=== PATIENT | female | born 1985 | race Caucasian/White ===

== ENCOUNTER 2022-04-16 12:57 | Emergency (ER) | payer OTHER ==
[~2022-04-16] VITALS: Ht 160 cm; Wt 69.4 kg
[2022-04-16] MEDS ORDERED: KETOROLAC TROMETHAMINE 30 MG INJ IM ONE (13:30)
[2022-04-16] MEDS ORDERED: predniSONE 20 MG TABLET PO ONE (13:30)
[2022-04-16] MEDS ORDERED: KETOROLAC TROMETHAMINE 30 MG INJ ONE (13:30)
[2022-04-16] MEDS ORDERED: predniSONE 20 MG TABLET ONE (13:30)
--- NOTE | 2022-04-16 13:38 | NUR ---
Pt signed the consent stating she is okay to have CT scan w/o screening. explained the risks. Pt acknowledged. Pt is sure she is not .
[2022-04-16] MEDS ORDERED: METH4TAB3 PO (14:09)
[2022-04-16] MEDS ORDERED: IBUP-1957 PO (14:09)
[2022-04-16] MEDS ORDERED: HYDR-4209 PO (14:09)
[2022-04-16] MEDS ORDERED: CYCL10TA9 PO (14:09)
--- NOTE | 2022-04-16 14:15 | NUR ---
Patient discharged to home in stable condition. Written and verbal after care instructions given. Patient verbalizes understanding of instructions. Stressed follow up or return to ER for worsening s/s.
[2022-04-16 14:37] VITALS: BP 129/78
== END 2022-04-16 14:15 | disposition home or self-care (01) ==
LOC: ER 12:57
DX: S33.141A Dislocation of L4/L5 lumbar vertebra, initial encounter (principal); S33.39XA Dislocation of other parts of lumbar spine and pelvis, initial encounter; X50.0XXA Overexertion from strenuous movement or load, initial encounter; Y93.89 Activity, other specified; Y92.512 Supermarket, store or market as the place of occurrence of the external cause; Y99.8 Other external cause status
CPT/HCPCS: 99285; 72131; 96372; J7512; J1885; A4663

== ENCOUNTER 2022-06-29 14:46 | Emergency (ER) | payer OTHER ==
[~2022-06-29] VITALS: Ht 157.5 cm; Wt 70.3 kg
[~2022-06-29 14:46] MED LIST: CYCL10TA9 PO; HYDR-4209 PO; IBUP-1957 PO; METH4TAB3 PO
[2022-06-29] MEDS ORDERED: FUROSEMIDE 40 MG/4 ML VIAL ONE (14:59)
[2022-06-29] MEDS ORDERED: ASPIRIN 325 MG TABLET ONE (15:00)
[2022-06-29] MEDS ORDERED: NITROGLYCERIN OINT 1 GM PACKET TP ONE (15:01)
--- NOTE | 2022-06-29 15:11 | NUR ---
PT IS IN ROOM #2A. DR SOLIS EVALUATED THE PT.
[2022-06-29] MEDS ORDERED: PRED50TA PO (15:16)
--- NOTE | 2022-06-29 15:38 | NUR ---
PT WAS D/C'd TO HOME. D/C INSTRUCTIONS GIVEN TO THE PT.
[2022-06-29 15:39] VITALS: BP 126/71
== END 2022-06-29 15:40 | disposition home or self-care (01) ==
LOC: ER 14:46
DX: L50.9 Urticaria, unspecified (principal); Z88.6 Allergy status to analgesic agent; Z88.8 Allergy status to other drugs, medicaments and biological substances; Z79.899 Other long term (current) drug therapy
CPT/HCPCS: A4663; J1940

== ENCOUNTER 2022-10-08 09:57 | Emergency (ER) | payer OTHER ==
[~2022-10-08] VITALS: Ht 157.5 cm; Wt 70.8 kg
[~2022-10-08 09:57] MED LIST changes: +PRED50TA PO
--- NOTE | 2022-10-08 10:11 | NUR ---
Pt C/O R. shoulder pain, rated 5/10 pain, radiating to pinky & ring finger numbness. Injury occurred 10/06 when cleaning. Pt can raise arm slightly above 90 degrees (above chest level). Pt stated she "took ibuprofen for pain." Safety measures in place. Will continue to monitor.
[2022-10-08] MEDS ORDERED: ACETAMINOPHEN 325 MG TABLET ONE (10:29)
[2022-10-08] MEDS ORDERED: ACETAMINOPHEN 325 MG TABLET PO ONE (10:30)
[2022-10-08] MEDS ORDERED: IBUPROFEN 800 MG TABLET PO ONE (10:30)
[2022-10-08] MEDS ORDERED: IBUPROFEN 800 MG TABLET ONE (10:30)
[2022-10-08 11:25] VITALS: BP 124/73; TEMP 98.6; O2SAT 99
== END 2022-10-08 11:26 | disposition home or self-care (01) ==
LOC: ER 09:57
DX: S46.911A Strain of unspecified muscle, fascia and tendon at shoulder and upper arm level, right arm, initial encounter (principal); R07.89 Other chest pain; Z88.6 Allergy status to analgesic agent; Z88.8 Allergy status to other drugs, medicaments and biological substances; Z79.1 Long term (current) use of non-steroidal anti-inflammatories (NSAID); Z79.899 Other long term (current) drug therapy; X58.XXXA Exposure to other specified factors, initial encounter; Y93.89 Activity, other specified; Y92.89 Other specified places as the place of occurrence of the external cause; Y99.8 Other external cause status
CPT/HCPCS: 71046; 73030; A4663